=== PATIENT | female | born 1975 | race African-American/Black ===

== ENCOUNTER 2016-10-25 04:39 | Emergency (ER) | payer OTHER ==
[2016-10-25 04:46] VITALS: BP 128/86
[2016-10-25] MEDS ORDERED: LIDOCAINE 2% 10 ML MDV ONE (05:01)
--- NOTE | 2016-10-25 05:39 | ED Physician Documentation ---
PD HPI UPPER EXT INJURY - Stated complaint Stated Complaint: L THUMB LAC - Chief complaint Chief Complaint: Laceration - History obtained from History obtained from: Patient - History of Present Illness Location: Left, Finger Type of injury: Laceration Where injury occurred: Home Timing - onset: How many minutes ago (40) Improved by: Immobilization Worsened by: Moving, Palpating Similar symptoms before: Has not had sx before Recently seen: Not recently seen - Additonal information Additional information: Patient is a 40 year old female presenting to the emergency department for a thumb laceration. Patient was unpacking her luggage when she cut her hand on a knife in the bag. patient states she is up to date with tetanus. Review of Systems Constitutional: denies: Fever, Chills Nose: denies: Epistaxis GI: denies: Nausea, Vomiting Skin: reports: Laceration (s) Musculoskeletal: reports: Extremity pain Neurologic: denies: Generalized weakness, Focal weakness Immunocompromised: denies: Immunocompromised PD PAST MEDICAL HISTORY - Past Medical History Past Medical History: No Cardiovascular: None Respiratory: None Neuro: None Endocrine/Autoimmune: None GI: None [employer]ORD[employer]ATOR: None : None HEENT: None Psych: None Musculoskeletal: None Derm: None - Past Surgical History Past Surgical History: No - Present Medications Home Medications: Ambulatory Orders Medication Instructions Recorded Confirmed Medroxyprogesterone Acetate 150 mg PO DAILY 05/02/15 05/02/15 [Depo-Provera] - Allergies Allergies/Adverse Reactions: Allergies Allergy/AdvReac Type Severity Reaction Status Date / Time No Known Drug Allergies Allergy Verified 10/25/16 04:46 - Social History Does the pt smoke?: No Smoking Status: Never smoker Does the pt drink ETOH?: No Does the pt have substance abuse?: No - Immunizations Immunizations are current?: Yes - POLST Patient has POLST: No PD ED PE NORMAL - Vitals Vital signs reviewed: Yes - General General: Alert and oriented X 3, No acute distress - HEENT HEENT: Atraumatic - Neck Neck: Supple, no meningeal sign - Respiratory Respiratory: No respiratory distress - Neuro Neuro: Alert and oriented X 3, No motor deficit, No sensory deficit, Normal speech - Psych Psych: Normal mood PD ED PE EXPANDED - Extremities Extremities: Left finger(s) (2cm laceration of left thumb) Results - Vitals Vitals: Vital Signs - 24 hr 10/25/16 04:44 Temperature 36.0 C L Heart Rate 75 Respiratory 17 Rate Blood Pressure 128/86 H O2 Saturation 100 Oxygen O2 Source Room air Procedures - Laceration (location) left thumb Length in cm: 2 Wound type: Curved Neurovascular status: Sensory intact, Vascular intact Anesthesia: Lidocaine 2% Wound Preparation: Irrigated copiously NS Skin layer closure: Dermabond, Steri strips Other: Patient tolerated well, No complications, Neurovascular intact, Tetanus UTD Complexity: Simple PD MEDICAL DECISION MAKING - ED course Complexity details: reviewed old records, reviewed results, re-evaluated patient , considered differential ED course: Patient was seen and examined at bedside. Patient's wound was digitally blocked and cleaned. Patient refused sutures and wound was repaired with dermabond and steristrips. patient required no further work up and was stable for discharge with outpatient follow up. Departure - Departure Disposition: 01 Home, Self Care Clinical Impression: Laceration Condition: Good Instructions: ED Laceration Ext Skin Glue Follow-Up: primary,care provider [Other] - As Needed Comments: Please keep your wound clean and dry. You can replace the steristrip if one comes off. You can take motrin or tylenol as needed for pain. You should follow up with your pmd if you have any signs of infection. You may return to the emergency department at any time for new, worsening or uncontrollable symptoms.
== END 2016-10-25 05:54 | disposition home or self-care (01) ==
LOC: ED 04:39
DX: S61.012A Laceration without foreign body of left thumb without damage to nail, initial encounter (principal); W26.0XXA Contact with knife, initial encounter
CPT/HCPCS: 12001; 99283